=== PATIENT | female | born 1970 | race Caucasian/White ===

== ENCOUNTER → 2024-03-19 | Day surgery (SDC) | payer BC ==
[~2024-03-19] VITALS: Ht 152.4 cm; Wt 90.7 kg
[~2024-03-19] MED LIST: BACITRACIN 14GM TUBE TOP ONE; DEXAMETHASONE 4MG/ML 1ML VIAL ONE; FENTANYL CITRATE/PF 50MCG/ML 2ML VIAL ONE; FLUO-335 PO; GENTAMICIN SULF 40MG/ML 2ML VIAL ONE; HYDROMORPHONE HCL/PF 1MG/ML INJ ONE; LABETALOL 5MG/ML 4ML INJ IV PRN; LIDOCAINE HCL 1% 10 MG/ML 10ML VIAL ONE; MEPERIDINE HCL/PF 25MG/ML CPJ IV PRN; METHYLENE BLUE 50MG/10ML AMP IV ONE; MIDAZOLAM HCL 2 MG/2 ML VIAL ONE; ONDANSETRON HCL 4MG/2ML INJ ONE; OXYC-100 MT; POLYMYXIN B SULFATE 500000 UNITS/VIAL ONE; PROPOFOL 200MG/20ML VIAL IV ONE; SKIN ADHESIVE 0.7 GM EA TOP ONE
[2024-03-19] MEDS: LACTATED RINGERS 1,000 ML IV SCH (06:20)
[2024-03-19] MEDS: HYDROMORPHONE HCL/PF 1MG/ML INJ IV PRN (11:56)
[2024-03-19 12:03] VITALS: BP 105/50; PULSE 84; RESP 14
[2024-03-19] MEDS: ONDANSETRON HCL 4MG/2ML INJ IV PRN (12:07)
== END | disposition home or self-care (01) ==
LOC: OR 05:42
PROVIDERS: ATTEND Surgery
DX: T85.43XA Leakage of breast prosthesis and implant, initial encounter (principal); Z79.899 Other long term (current) drug therapy; Z98.890 Other specified postprocedural states; X58.XXXA Exposure to other specified factors, initial encounter; Y93.89 Activity, other specified; Y92.89 Other specified places as the place of occurrence of the external cause; Y99.8 Other external cause status
CPT/HCPCS: 19371; 88300; J3010; J1100; J1580; J3490 ×2; Q9968; J2250; J2405; J2704; J1171

== ENCOUNTER → 2024-11-18 | Outpatient (CLI) | payer BC ==
[~2024-11-18] MED LIST changes: -BACITRACIN 14GM TUBE TOP ONE; -DEXAMETHASONE 4MG/ML 1ML VIAL ONE; -FENTANYL CITRATE/PF 50MCG/ML 2ML VIAL ONE; -GENTAMICIN SULF 40MG/ML 2ML VIAL ONE; -HYDROMORPHONE HCL/PF 1MG/ML INJ ONE; -LABETALOL 5MG/ML 4ML INJ IV PRN; -LIDOCAINE HCL 1% 10 MG/ML 10ML VIAL ONE; -MEPERIDINE HCL/PF 25MG/ML CPJ IV PRN; -METHYLENE BLUE 50MG/10ML AMP IV ONE; -MIDAZOLAM HCL 2 MG/2 ML VIAL ONE; -ONDANSETRON HCL 4MG/2ML INJ ONE; -POLYMYXIN B SULFATE 500000 UNITS/VIAL ONE; -PROPOFOL 200MG/20ML VIAL IV ONE; -SKIN ADHESIVE 0.7 GM EA TOP ONE
== END | disposition home or self-care (01) ==
LOC: MAMMO 10:00
PROVIDERS: ATTEND Internal Medicine
DX: Z12.31 Encounter for screening mammogram for malignant neoplasm of breast (principal); R92.333 Mammographic heterogeneous density, bilateral breasts; R59.0 Localized enlarged lymph nodes; N64.89 Other specified disorders of breast; Z98.890 Other specified postprocedural states
CPT/HCPCS: 77063; 77067